=== PATIENT | male | born 1960 | race Caucasian/White ===

== ENCOUNTER 2017-12-03 17:16 | Emergency (ER) | payer SELFPAY ==
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
[2017-12-03 18:09] LABS: PLATELET COUNT 292 10^3/uL (150-400)
[2017-12-03] MEDS ORDERED: HALOPERIDOL LACT 5 MG/ML INJ ONE (18:57)
[2017-12-03] MEDS ORDERED: LORazepam 2 MG/ML INJ ONE (18:57)
[2017-12-03] MEDS ORDERED: LORazepam 2 MG/ML INJ IVP ONE (19:02)
[2017-12-03] MEDS ORDERED: HALOPERIDOL LACT 5 MG/ML INJ IM ONE (19:03)
[2017-12-03] MEDS ORDERED: LORazepam 2 MG/ML INJ IM ONE (19:05)
--- NOTE | 2017-12-03 20:35 | ASMTLCPROG ---
Notes Note: Notes: Pt was uncooperative during eval and stated, " I'm losing my patience and I am going to walk out. " Pt stated he did not want to participate with the eval process Date Signed: 12/03/2017 08:34 PM Electronically Signed By:Chasity Littlejohn
[2017-12-04 10:21] VITALS: BP 135/78
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
--- NOTE | 2017-12-04 12:06 | ASMTTCLDSP ---
TLC Discharge Disposition Disposition: Answers: Discharge If Answers: Yes DISCHARGED: Patient/family given suicide hotline info & SAMHSA brochure? Disposition Notes: Notes: Pt stated commitment or ability to keep self safe, denied thoughts of self harm or harm to others. Pt was given local hotline information and SAMHSA brochure After an Attempt. Discharge Concerns/Recommendations: Notes: In consultation with [facility] ED physician, Aly Orellana MD, Dr. Orellana concurred that pt does not appear to meet 27-65 criteria requiring psychiatric hospitalization as pt does not appear to be an imminent risk of harm to self/others/gravely disabled due to a mental illness condition. Dr. Orellana provided verbal order read back vacating M1 hold at 0945 hrs. Was patient given the Answers: Not applicable Inpatient Behavioral Health Prohibited Belongings List while in the ED? Psychiatrist vacating M1 Aly Orellana MD Hold: Date and time M1 hold 12/04/2017 09:45 AM vacated (time format is hh:mm): Type of Hold: Answers: M1/72-hour Hold Hold initiated by: Answers: Police Date Signed: 12/04/2017 12:05 PM Electronically Signed By:Jason Cheng
== END 2017-12-04 10:21 | disposition home or self-care (01) ==
DX: F23 Brief psychotic disorder (principal)
CPT/HCPCS: 80305; G0480; J1630; J2060